=== PATIENT | female | born 1990 | race American Indian/Alaskan Native ===

== ENCOUNTER 2020-02-04 01:20 | Emergency (ER) | payer MEDICAID ==
[2020-02-04] MEDS ORDERED: LORazepam 2 MG/ML SDV IVPUSH ONE (01:32)
[2020-02-04] MEDS ORDERED: diphenhydrAMINE 50 MG/ML SDV IVPUSH ONE (01:41)
[2020-02-04] MEDS ORDERED: Haloperidol Lactate 5 MG/ML SDV IM ONE (01:42)
[2020-02-04 01:59] LABS: ANION GAP 13.4 mEq/L (7-13); CHLORIDE,CL 109 mmol/L (98-107); SODIUM,NA 145 mmol/L (136-145)
[2020-02-04] MEDS ORDERED: Lidocaine 1% 30 ML SDV INJECT ONE (02:27)
[2020-02-04] MEDS ORDERED: Bacitracin Oint 1 GM U/D Packet TOP ONE (02:27)
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
== END 2020-02-04 03:28 ==
LOC: DL.ED 01:20
DX: S61.512A Laceration without foreign body of left wrist, initial encounter (principal); S70.11XA Contusion of right thigh, initial encounter; S80.02XA Contusion of left knee, initial encounter; S40.029A Contusion of unspecified upper arm, initial encounter; F10.129 Alcohol abuse with intoxication, unspecified; Y90.8 Blood alcohol level of 240 mg/100 ml or more; Z88.2 Allergy status to sulfonamides; X78.8XXA Intentional self-harm by other sharp object, initial encounter
CPT/HCPCS: 12002; 36415; 80053; 80305; 80307; 81001; 81025; 85025; 96372; 96374; 96375; 99285; J1200; J1630; J2001; J2060

== ENCOUNTER 2023-07-02 12:56 | Emergency (ER) | payer SELFPAY ==
[2023-07-02 14:03] LABS: APPEARANCE,URINE CLOUDY (CLEAR); BILIRUBIN,URINE NEGATIVE (NEGATIVE); COLOR,URINE YELLOW (YELLOW); GLUCOSE,URINE NEGATIVE (NEGATIVE); KETONES,URINE NEGATIVE (NEGATIVE); LEUKOCYTE ESTERASE,URINE MODERATE (NEGATIVE); NITRITE,URINE NEGATIVE (NEGATIVE); OCCULT BLOOD,URINE MODERATE (NEGATIVE); PH,URINE 6.5 (5.0-9.0); PROTEIN,URINE 100 (NEGATIVE); UROBILINOGEN,URINE 0.2 mg/dL (0.2-1.0)
[2023-07-02 14:14] LABS: BACTERIA,URINE MODERATE /HPF (0-FEW/HPF); EPITHELIAL CELLS,URINE FEW /HPF (NOT SEEN); WBC,URINE >100 /HPF (0-5/HPF)
[2023-07-02] MEDS ORDERED: Take Home: Nitrofurantoin Monohydrate/Macrocrystalline 100 MG, 6 Cap Pack PO ONE (14:53)
[2023-07-02] MEDS ORDERED: Take Home: Phenazopyridine 95 MG Tab, 4 Tab Pack PO ONE (15:08)
[2023-07-02] MEDS ORDERED: Phenazopyridine 95 MG Tab PO ONE (15:08)
[2023-07-05 12:46] LABS: C.TRACHOMATIS BY TMA Negative (Negative); M GENITALIUM Positive (Negative); M GENITALIUM SOURCE Urine; N.GONORRHOEAE BY TMA Negative (Negative); SOURCE Urine
== END 2023-07-02 15:28 | disposition home or self-care (01) ==
LOC: DL.ED 12:56
DX: N39.0 Urinary tract infection, site not specified (principal); Z88.2 Allergy status to sulfonamides
CPT/HCPCS: 81001; 87086; 87088; 87186; 87491; 87563; 87591; 99283; A9270-GY